=== PATIENT | male | born 1955 | race Hispanic/Latino ===

== ENCOUNTER → 2018-10-22 05:53 | Outpatient (CLI) | payer MEDICARE, BC, SELFPAY ==
--- NOTE | 2018-10-22 | DI.MRI.S_ITS ---
PROCEDURE: MR PELVIS WO CON INDICATIONS: CONTUSION OF LOW BACK AND PELVIS TECHNIQUE: Noncontrast coronal and axial T1 spin echo and STIR through the bony pelvis. COMPARISON: None. FINDINGS: Image quality: Excellent. Bones: Bone marrow of the pelvic ring, sacrum, and proximal femurs demonstrate normal overall signal. No bone contusions or fractures identified. The visualized lower lumbar spine appears normally aligned. Tendons: The gluteus medius and minimus tendons appear intact, with mild associated peritendinous edema on the left consistent with a peritendinitis. No associated bursal fluid collection. The adjacent proximal iliotibial band also appears intact. The iliopsoas tendon appears intact, without adjacent bursal fluid collections or evidence for impingement syndrome. The origin of the hamstring tendon is intact at the ischial tuberosity, as well as the associated sacrotuberous ligament. The straight and reflected heads of the rectus femoris muscle origin appear intact, as well as the conjoint tendon. Soft tissues: No subcutaneous fluid collections identified. There is mild subcutaneous edema lateral to the gluteal regions and posterior to the lower back. Visualized muscles demonstrate normal bulk and internal signal. No joint effusions. No free pelvic fluid. Bladder wall thickness is normal. Genitourinary structures and bowel loops appear normal where visualized. IMPRESSION: 1. No fractures or bone contusions identified. 2. No discrete hematoma collections identified. Dictated by: Brandon Llamas M.D. on 10/22/2018 at 8:30 Approved by: Brandon Llamas M.D. on 10/22/2018 at 8:33
== END ==
PROVIDERS: PCP Internal Medicine; Visit Provider Orthopaedic Surgery Sports Medicine
DX: S30.0XXA Contusion of lower back and pelvis, initial encounter (principal)
CPT/HCPCS: 72195

== ENCOUNTER → 2021-01-16 09:30 | Outpatient (CLI) | payer MEDICARE, BC, SELFPAY ==
[2021-01-16 10:04] LABS: COVID19 -Nasal RAPID Negative (Negative)
== END ==
PROVIDERS: PCP Internal Medicine; Visit Provider Specialist
DX: Z20.822 Contact with and (suspected) exposure to COVID-19 (principal)
CPT/HCPCS: 87635

== ENCOUNTER 2021-01-19 06:24 | Day surgery (SDC) | payer MEDICARE, BC, SELFPAY ==
[2021-01-17 12:26] VITALS: BMI 26.6
[2021-01-19] VITALS (9 sets, daily range): BP systolic 123–153; BP diastolic 80–89; PULSE 70–88; RESP 16–18; TEMP 36.1–36.7; O2SAT 93–98; BMI 26.4
--- NOTE | 2021-01-19 | PATH_ITS ---
[facility] Accession Number: [id number] . 01 Material submitted: . spermatic cord - RIGHT SPERMATOCELE . 02 Diagnosis: Right Spermatocele, Hydrocelectomy: Benign spermatocele (6.5 x 4.5 x 2.2 cm). Negative for atypia or malignancy. [facility] 01/24/2021 1806 Local . 02 Electronically signed: . Stephanie Vázquez MD, Pathologist NPI- [id number] . 01 Gross description: . The specimen is received in formalin, labeled spermatocele, and consists of a 6.5 x 4.5 x 2.2 cm, martinez-pink, smooth cyst, which is sectioned to reveal a clear serous fluid and a martinez-white, smooth inner lining. Band Saw Marker sections are submitted in cassettes A1 and A2. ([id number]) /[facility] 01/20/2021 1526 Local . 02 Pathologist provided ICD-10: N43.40 . 02 CPT . 733750 Performed at: 01 [facility] [address] [place] [id number] MD Brandon Hopson MD Phone: [phone] Performed at: 02 [facility] [address] [place], [place] [id number] MD Dang Campoverde MD Phone: [phone]
--- NOTE | 2021-01-19 07:25 | PM.PREOP ---
Pre-operative Note Interval Note History & Physical reviewed/Exam performed by Physician: Yes Changes to H&P: No
[2021-01-19] MEDS: LACTATED RINGERS 1,000 ML 42 ML IV ×2 (07:30→08:44)
[2021-01-19] MEDS: CEFAZOLIN 2 GM/100 ML FROZ.PIGGY IV (07:45)
--- NOTE | 2021-01-19 08:12 | SUR.OPER ---
Supine on padded OR bed, head on pillow, arms secured on padded arm boards at <90 degrees abduction, legs uncrossed, safety belt at thigh, tape over blanket over lower legs.
[2021-01-19] MEDS: BUPIVACAINE LIPOSOME 266 MG/20 ML VIAL INJ (08:16)
[2021-01-19] MEDS: BUPIVACAINE 0.25% W/ EPI (PF) 10 ML VIAL 20 ML INJ (08:17)
[2021-01-19] MEDS: NEOMYCIN/POLYMYXIN/BACITRA UD OINT 1 EACH TOP (09:17)
--- NOTE | 2021-01-19 09:38 | P.OP_ITS ---
Operative Date/Time/Diagnoses Date of procedure: 01/19/21 Time of procedure: 09:38 Pre-op diagnosis: Right hydrocele Post-op diagnosis: other (Also complex right spermatocele) Procedure & Clinicians Procedure: 1. Right hydrocelectomy 2. Right spermatocelectomy Same procedure as scheduled: No (Intraoperative finding of bilobed, large spermatocele in addition to hydroc) Indications: 1. Right hydrocele (benign right scrotal fluid collection) Surgeon: Boo Mina Click Yes if Unassisted: Yes Anesthesia Type: General and Local (1.33% Exparel) Operative Notes Findings: Scrotal wall tissue planes are in normal. Within the tunica vaginalis was a typical hydrocele. Additionally there was a large bilobed spermatocele accounting for the majority of the intrascrotal cystic volume. Closure Type: primary Specimen(s): other (Right spermatocele) Applied: drain(s) (10. Cameroonian fenestrated [place] drain) Estimated Blood Loss (mL): 1 Blood products transfused: none Procedure in detail: The patient was positioned supine and the lower abdomen, genitalia, and groin were then prepped and draped in sterile fashion. The midline scrotal raphae was then infiltrated with 0.25% Marcaine with epinephrine. A midline incision was made in the scrotal raphae using the needle-tip cautery pen. The layers of the subcutaneous dartos fascia were then divided using blunt and cautery technique. The tunica vaginalis was then encountered and was cleared along its surface plane circumferentially. The structure was then delivered from the right hemiscrotum. The tunica vaginalis was then opened vertically and there was actually relatively small amount of hydrocele fluid and comparison to the volume of fluid within a large bilobed spermatocele. The epididymis and vascular cord structures meticulously dissected from the surface of the spermatocele using meticulous blunt, sharp, and cautery technique. Eventually the neck of the spermatocele was isolated and a curved hemostatic clamp was applied across its base and a 2nd 1 on the s permatocele side just above. The spermatocele was then sharply excise between the hemostats and was handed off the field for submission to pathology for routine gross and microscopic examination. A suture ligature of 3-0 Monocryl was then placed the base of the neck. The testicle and associated cord were then repositioned anatomically within the right hemiscrotum after amputation of the testicular appendage. 1.33% Exparel was then used infiltrate inferior lateral aspect of the scrotal wall. A 10 Cam[place]onian [place] drain was then positioned at the appropriate length within the right hemiscrotum and brought out through the stab incision at the inferior lateral aspect of the right hemiscrotum. The drain was secured in place with 2-0 silk to the skin in usual fashion. Additional 1.33% Exparel was then used to infiltrate the scrotal wall dartos fascia and the cutaneous layer. The dartos fascia was then closed with a running intermittently locking 2-0 Monocryl. Skin layer was reapproximated using a running horizontal mattress of 4-0 Monocryl. The skin surface was then cleaned and dried and antibiotic ointment was applied along the incision line. Sterile fluff gauze were then applied over the hemiscrotum and the patient was fitted with an athletic supporter. The drain was placed to bulb self suction. The patient was then awakened, transferred to [facility] for transport to PACU. Complications: none Post-operative Condition: stable Disposition: PACU Plan for aftercare: Discharge home
== END 2021-01-19 10:35 | disposition home or self-care (01) ==
PROVIDERS: PCP Internal Medicine; Referring Provider Internal Medicine; Visit Provider Specialist
PROC: (CPT 55040; principal; 2021-01-19 07:45)
DX: N43.3 Hydrocele, unspecified (principal); N43.41 Spermatocele of epididymis, single; F17.210 Nicotine dependence, cigarettes, uncomplicated
CPT/HCPCS: 55040; C9290; J0690; J2250; J3010

== ENCOUNTER → 2021-08-27 09:11 | Outpatient (CLI) | payer MEDICARE, BC, OTHER, SELFPAY ==
[2021-08-27 11:31] LABS: Prostate Specific Antigen Scrn 1.83 ng/mL (0.1-4.0)
== END ==
PROVIDERS: PCP Internal Medicine; Referring Provider Specialist; Visit Provider Specialist
DX: R97.20 Elevated prostate specific antigen [PSA] (principal)
CPT/HCPCS: 36415; 84153; G0103

== ENCOUNTER → 2022-08-27 12:46 | Outpatient (CLI) | payer MEDICARE, BC, OTHER, SELFPAY | PROVIDERS: PCP Internal Medicine; Referring Provider Specialist; Visit Provider Specialist | DX: N40.1 Benign prostatic hyperplasia with lower urinary tract symptoms (principal); N13.8 Other obstructive and reflux uropathy | CPT/HCPCS: 36415; 84153 ==

== ENCOUNTER → 2022-09-04 12:03 | Outpatient (CLI) | payer MEDICARE, BC, OTHER, SELFPAY | PROVIDERS: PCP Internal Medicine; Visit Provider Specialist | DX: N13.8 Other obstructive and reflux uropathy (principal); N40.1 Benign prostatic hyperplasia with lower urinary tract symptoms | CPT/HCPCS: 87086 ==

== ENCOUNTER → 2022-11-12 12:49 | Outpatient (CLI) | payer MEDICARE, BC, OTHER, SELFPAY ==
[2022-11-13 09:26] LABS: PSA Free % 30.5 % (.); PSA, Total 1.9 ng/mL (0.0-4.0)
== END ==
PROVIDERS: PCP Internal Medicine; Referring Provider Specialist; Visit Provider Specialist
DX: N13.8 Other obstructive and reflux uropathy (principal); N40.1 Benign prostatic hyperplasia with lower urinary tract symptoms
CPT/HCPCS: 36415; 84153; 84154

== ENCOUNTER → 2024-02-17 11:37 | Outpatient (CLI) | payer MEDICARE, BC, OTHER, SELFPAY ==
[2024-02-17 13:50] LABS: Prostate Specific Antigen 2.56 ng/mL (0.10-4.00)
== END ==
PROVIDERS: Referring Provider Specialist; Visit Provider Specialist
DX: N40.1 Benign prostatic hyperplasia with lower urinary tract symptoms (principal); N13.8 Other obstructive and reflux uropathy
CPT/HCPCS: 36415; 84153

== ENCOUNTER → 2024-08-18 11:45 | Outpatient (CLI) | payer MEDICARE, BC, OTHER, SELFPAY ==
[2024-08-18 13:25] LABS: Prostate Specific Antigen 2.99 ng/mL (0.10-4.00)
== END ==
PROVIDERS: PCP Family Medicine; Referring Provider Urology; Visit Provider Urology
DX: N40.1 Benign prostatic hyperplasia with lower urinary tract symptoms (principal); N13.8 Other obstructive and reflux uropathy
CPT/HCPCS: 36415; 84153

== ENCOUNTER → 2025-02-16 10:54 | Outpatient (CLI) | payer MEDICARE, BC, OTHER, SELFPAY ==
[2025-02-16 12:28] LABS: Prostate Specific Antigen 2.81 ng/mL (0.10-4.00)
== END ==
PROVIDERS: PCP Family Medicine; Referring Provider Urology; Visit Provider Urology
DX: N40.1 Benign prostatic hyperplasia with lower urinary tract symptoms (principal); N13.8 Other obstructive and reflux uropathy; Z12.5 Encounter for screening for malignant neoplasm of prostate
CPT/HCPCS: 36415; 84153